=== PATIENT | male | born 1995 | race African-American/Black ===

== ENCOUNTER 2023-08-11 13:23 | Emergency (ER) | payer SELFPAY ==
[~2023-08-11] VITALS: Ht 185.4 cm; Wt 102.0 kg
[2023-08-11 13:57] VITALS: BP 136/87
[2023-08-11 14:00] VITALS: BP 134/93
[2023-08-11 14:14] LABS: BASO% 0.4 % (0-3); EOS% 2.8 % (0-8); HEMATOCRIT 47.4 % (39.0-50.0); HEMOGLOBIN 15.7 g/dl (14.0-18.0); IMMATURE GRANULOCYTES 0.8 % (0.0-5.0); LYMPH% 15.9 % (15-41); MEAN CELL VOLUME 92.4 fL CALC (80.0-100.0); MEAN CORPUSCULAR HGB 30.6 pG CALC (26.0-32.0); MEAN CORPUSCULAR HGB CONC 33.1 g/dL CAL (32.0-36.0); MONO% 7.9 % (2-13); NEUT# 8.29 thou/uL (1.82-7.42); NEUT% 72.2 % (42-76); RED BLOOD COUNT 5.13 mill/uL (4.70-6.10); RED CELL DISTRI WIDTH 12.7 % (11.5-15.5)
[2023-08-11 14:30] VITALS: BP 136/87
[2023-08-11 14:36] LABS: ALBUMIN 4.2 g/dL (3.2-5.0); ALKALINE PHOSPHATASE 58 u/l (38-126); ANION GAP 10 (6-22 (CALC)); BILIRUBIN, TOTAL 0.5 mg/dL (0.2-1.3); BUN 13 mg/dL (9-20); BUN/CREATININE RATIO 16 (12-20 (CALC)); CARBON DIOXIDE 26 mmol/l (22-30); CHLORIDE 103 mmol/l (95-108); CREATININE 0.8 mg/dL (0.7-1.3); GFR FOR AFR.AMER. > 60 ML/MIN (>=60 (CALC)); GFR OTHER RACES > 60 ML/MIN (>=60 (CALC)); POTASSIUM 4.1 mmol/l (3.5-5.1); SGOT/AST 29 u/l (17-59); SODIUM 135 mmol/l (137-146); TOTAL PROTEIN 7.5 g/dL (6.3-8.2)
[2023-08-11 15:00] VITALS: BP 137/91
[2023-08-11 15:08] LABS: URINE BILIRUBIN - DIPSTICK Negative (NEGATIVE); URINE BLOOD DIPSTICK Negative (NEGATIVE); URINE COLOR Yellow; URINE GLUCOSE - DIPSTICK Negative (NEGATIVE); URINE KETONE Negative (NEGATIVE); URINE LEUK ESTERASE Negative (NEGATIVE); URINE NITRITE - DIPSTICK Negative (Negative); URINE PROTEIN - DIPSTICK Negative (NEG-TRACE); URINE UROBILINOGEN - DIPSTICK 0.2 E.U./dL (0.2)
[2023-08-11 15:39] VITALS: BP 137/91
[2023-08-11] MEDS ORDERED: ZOFRAN4 MG/TAB PO (15:42)
[2023-08-12] MEDS ORDERED: ZOFRAN4 MG/TAB PO (10:28)
== END 2023-08-11 15:50 | disposition home or self-care (01) | DRG 392 ==
LOC: ED 13:23
PROVIDERS: Family Medicine
DX: K52.9 Noninfective gastroenteritis and colitis, unspecified (principal); F17.210 Nicotine dependence, cigarettes, uncomplicated; Z20.822 Contact with and (suspected) exposure to COVID-19

== ENCOUNTER 2024-11-25 11:47 | Emergency (ER) | payer SELFPAY ==
[~2024-11-25] VITALS: Ht 185.4 cm; Wt 122.0 kg
[~2024-11-25 11:47] MED LIST: ZOFRAN4 MG/TAB PO
[2024-11-25] MEDS ORDERED: ACETAMINOPHEN 325 MG/TAB PO ONE (13:50)
[2024-11-25] MEDS ORDERED: TAM75CAP PO (13:53)
[2024-11-25] MEDS ORDERED: ZOFRAN4 MG/TAB PO (13:53)
[2024-11-25] MEDS ORDERED: VENTOLIN HFA108 MCG PO (13:53)
[2024-11-25 14:53] VITALS: BP 154/106
== END 2024-11-25 14:56 | disposition home or self-care (01) | DRG 153 ==
LOC: ED 11:47
DX: J11.1 Influenza due to unidentified influenza virus with other respiratory manifestations (principal); Z72.0 Tobacco use; Z20.822 Contact with and (suspected) exposure to COVID-19